=== PATIENT | male | born 1985 | race Two or more races ===

== ENCOUNTER 2024-04-29 19:07 | Emergency (ER) | payer OTHER ==
[~2024-04-29] VITALS: Ht 182.9 cm; Wt 72.6 kg
[2024-04-29] MEDS ORDERED: ONDANSETRON 4 MG TAB.RAPDIS ONE (21:10)
[2024-04-29] MEDS ORDERED: PANTOPRAZOLE 40 MG TABLET.DR PO ONE (21:11)
[2024-04-29] MEDS: ONDANSETRON 4 MG TAB.RAPDIS SL ONE (21:14)
[2024-04-29] MEDS: PANTOPRAZOLE 40 MG TABLET.DR PO ONE (21:14)
[2024-04-29] MEDS ORDERED: ONDA4TAB11 PO (22:14)
[2024-04-29] MEDS ORDERED: PANT40TA2 PO (22:14)
[2024-04-29 22:21] VITALS: BP 122/88; TEMP 98.6; O2SAT 98
== END 2024-04-29 22:21 | disposition home or self-care (01) ==
LOC: ER 19:09
DX: S05.12XA Contusion of eyeball and orbital tissues, left eye, initial encounter (principal); F10.129 Alcohol abuse with intoxication, unspecified; R11.10 Vomiting, unspecified; W18.39XA Other fall on same level, initial encounter; Y93.89 Activity, other specified; Y92.89 Other specified places as the place of occurrence of the external cause; Y99.8 Other external cause status
CPT/HCPCS: 99284; 70486; Q0162